=== PATIENT | female | born 1935 | race African-American/Black ===

== ENCOUNTER 2017-09-04 23:17 | Inpatient (IN) | payer MEDICARE, MEDICAID, OTHER ==
[~2017-09-04] VITALS: Ht 152.4 cm; Wt 68.5 kg
[~2017-09-04 23:17] MED LIST: ALPR0.25 PO; FELO5TAB PO; LOSA50TA3 PO; TRAMADOL
[2017-09-04] MEDS ORDERED: SODIUM CHLORIDE 0.9% 1,000 ML IV ONE (23:25)
[2017-09-04 23:48] LABS: HEMATOCRIT. 25.3 % (36.0-48.0); HEMOGLOBIN. 8.6 g/dL (12.0-16.0); MEAN CORPUSCULAR VOLUME 96.7 fL (81.0-99.0); MEAN PLATELET VOLUME 7.7 fl (7.4-10.4); PLATELET 259 x1000/uL (130-400); RED BLOOD CELL COUNT 2.62 mill/uL (4.2-5.4); RED CELL DISTRIBUTION WIDTH 13.6 % (11.6-14.6)
[2017-09-04 23:52] LABS: CHLORIDE 103 mEq/L (98-107)
[2017-09-04 23:53] LABS: PROTHROMBIN TIME 10.7 sec (9.4-11.6)
[2017-09-04 23:59] LABS: ETHANOL BLOOD < 10 mg/dL
[2017-09-05] VITALS (8 sets, daily range): BP systolic 93–155; BP diastolic 40–70
[2017-09-05 00:33] LABS: PLATELET ESTIMATE NORMAL
[2017-09-05 01:02] LABS: CLARITY URINE CLEAR (CLEAR); COLOR URINE YELLOW (YELLOW); KETONES URINE TRACE (NEGATIVE); LEUKOCYTE ESTERASE URINE NEGATIVE (NEGATIVE); NITRITE URINE NEGATIVE (NEGATIVE); OCCULT BLOOD URINE NEGATIVE (NEGATIVE); PH URINE 6.5 (4.5-8.0); PROTEIN URINE NEGATIVE (NEGATIVE); SPECIFIC GRAVITY URINE 1.021 (1.005-1.030); UROBILINOGEN URINE 0.2 E.U./dL (0.2-1.0)
[2017-09-05 01:16] LABS: *AMPHETAMINES SCREEN URINE NEGATIVE (NEGATIVE); *BARBITURATES SCREEN URINE NEGATIVE (NEGATIVE); *BENZODIAZEPINES SCREEN URINE NEGATIVE (NEGATIVE)
[2017-09-05 01:17] LABS: *COCAINE SCREEN URINE NEGATIVE (NEGATIVE); METHADONE URINE SCREEN NEGATIVE (NEGATIVE); OPIATES URINE SCREEN NEGATIVE (NEGATIVE)
[2017-09-05 01:18] LABS: CANNABINOID URINE SCREEN NEGATIVE (NEGATIVE); PHENCYCLIDINE URINE SCREEN NEGATIVE (NEGATIVE)
[2017-09-05] MEDS ORDERED: SODIUM CHLORIDE 0.9% 1,000 ML IV ONE (02:42)
[2017-09-05] MEDS ORDERED: PANTOPRAZOLE 40MG DR TABLET PO SCH (07:45)
[2017-09-05] MEDS ORDERED: HYDROCODONE/ACETAMINOPHEN 5/325MG TABLET PO PRN (07:45)
[2017-09-05] MEDS ORDERED: SODIUM CHLORIDE 0.9% 100 ML IV ONE (07:45)
[2017-09-05] MEDS ORDERED: PIPERACILLIN/TAZ 3.375G PREMIX 50 ML IV SCH (07:45)
[2017-09-05] MEDS: SODIUM CHLORIDE 0.9% 1,000 ML IV SCH (08:04)
[2017-09-05] MEDS ORDERED: ASPIRIN 81MG TABLET PO SCH (09:00)
[2017-09-05] MEDS ORDERED: ENOXAPARIN 30MG/0.3ML SYR SUBCUT SCH (09:00)
[2017-09-05] MEDS: PIPERACILLIN/TAZOBACTAM 2.25 G in DEXTROSE 5% WATER 50 ML IV SCH ×3 (09:31→21:15)
[2017-09-05] MEDS ORDERED: ONDANSETRON HCL 4MG/2ML VIAL IV PRN (14:30)
[2017-09-05 16:44] LABS: CHLORIDE 112 mEq/L (98-107)
[2017-09-05 16:53] LABS: CREATINE KINASE 212 IU/L (26-192)
[2017-09-05 16:55] LABS: CREATINE KINASE MB FRACTION 3.5 ng/mL (0.5-3.6)
[2017-09-05 17:56] LABS: MEAN CORPUSCULAR HEMOGLOBIN 32.1 pg (28.0-32.0); MEAN CORPUSCULAR VOLUME 97.5 fL (81.0-99.0); MEAN PLATELET VOLUME 7.5 fl (7.4-10.4); PLATELET 176 x1000/uL (130-400); RED BLOOD CELL COUNT 1.33 mill/uL (4.2-5.4); RED CELL DISTRIBUTION WIDTH 14.1 % (11.6-14.6)
[2017-09-05 18:03] LABS: HEMOGLOBIN. 4.3 g/dL (12.0-16.0)
[2017-09-05 20:21] LABS: NUCLEATED RED BLOOD CELLS 2 /100 WBC; PLATELET ESTIMATE NORMAL
[2017-09-06] VITALS (13 sets, daily range): BP systolic 94–128; BP diastolic 38–89
[2017-09-06] MEDS: PIPERACILLIN/TAZOBACTAM 2.25 G in DEXTROSE 5% WATER 50 ML IV SCH ×3 (04:57→21:17)
[2017-09-06] MEDS: SODIUM CHLORIDE 0.9% 1,000 ML IV SCH (04:58)
[2017-09-06] MEDS ORDERED: PANTOPRAZOLE SODIUM 40 MG/VIAL IV SCH (09:00)
[2017-09-06 10:19] LABS: HEMATOCRIT. 25.1 % (36.0-48.0); HEMOGLOBIN. 8.6 g/dL (12.0-16.0); MEAN CORPUSCULAR HEMOGLOBIN 31.4 pg (28.0-32.0); MEAN CORPUSCULAR VOLUME 91.9 fL (81.0-99.0); PLATELET 171 x1000/uL (130-400); RED BLOOD CELL COUNT 2.73 mill/uL (4.2-5.4); RED CELL DISTRIBUTION WIDTH 15.8 % (11.6-14.6)
[2017-09-06] MEDS: ACETAMINOPHEN 325MG TABLET PO PRN (13:09)
[2017-09-06 13:23] LABS: NUCLEATED RED BLOOD CELLS 8 /100 WBC; PLATELET ESTIMATE NORMAL
[2017-09-06] MEDS ORDERED: IOHEXOL-300 100 ML BOTTLE ONE (17:21)
[2017-09-06 20:19] LABS: TOTAL IRON BINDING CAPACITY 213 ug/dL (250-450)
[2017-09-06 20:32] LABS: FOLIC ACID (FOLATE) SERUM 15.5 ng/mL (>5.38)
[2017-09-06] MEDS: PANTOPRAZOLE SODIUM 40 MG/VIAL IV SCH (21:17)
[2017-09-07] VITALS (9 sets, daily range): BP systolic 110–155; BP diastolic 39–67
[2017-09-07] MEDS: ACETAMINOPHEN 325MG TABLET PO PRN (02:21)
[2017-09-07] MEDS: PIPERACILLIN/TAZOBACTAM 2.25 G in DEXTROSE 5% WATER 50 ML IV SCH ×4 (02:31→20:56)
[2017-09-07] MEDS: SODIUM CHLORIDE 0.9% 1,000 ML IV SCH (02:31)
[2017-09-07] MEDS: PANTOPRAZOLE SODIUM 40 MG/VIAL IV SCH ×2 (08:45→20:56)
[2017-09-07] MEDS ORDERED: SODIUM CHLORIDE 0.9% 10ML VIAL ONE (13:03)
[2017-09-07 13:19] LABS: HEMATOCRIT 21.3 % (36.0-48.0); HEMOGLOBIN 7.3 g/dL (12.0-16.0); MEAN CORPUSCULAR HEMOGLOBIN 31.8 pg (28.0-32.0); MEAN CORPUSCULAR VOLUME 93.4 fL (81.0-99.0); PLATELET 189 x1000/uL (130-400); RED BLOOD CELL COUNT 2.28 mill/uL (4.2-5.4)
[2017-09-07] MEDS ORDERED: MIDAZOLAM HCL 5 MG/5 ML VIAL IV PRN (16:19)
[2017-09-07] MEDS ORDERED: FENTANYL CITRATE/PF 50MCG/ML 2ML VIAL IV PRN (16:20)
[2017-09-07] MEDS ORDERED: MIDAZOLAM HCL 5 MG/5 ML VIAL ONE (16:21)
[2017-09-07] MEDS ORDERED: FENTANYL CITRATE/PF 50MCG/ML 2ML VIAL ONE (16:21)
[2017-09-07] MEDS: SUCRALFATE 1G TABLET PO SCH (22:04)
[2017-09-08] VITALS: BP 122/54
[2017-09-08] MEDS: SODIUM CHLORIDE 0.9% 1,000 ML IV SCH ×3 (00:01→21:33)
[2017-09-08 00:24] LABS: HEMATOCRIT 21.8 % (36.0-48.0); HEMOGLOBIN 7.5 g/dL (12.0-16.0)
[2017-09-08] MEDS: SUCRALFATE 1G TABLET PO SCH ×7 (00:56→21:21)
[2017-09-08] MEDS: PIPERACILLIN/TAZOBACTAM 2.25 G in DEXTROSE 5% WATER 50 ML IV SCH ×4 (03:49→21:31)
[2017-09-08 04:31] VITALS: BP 117/48
[2017-09-08 06:40] LABS: HEMATOCRIT 25.3 % (36.0-48.0); HEMOGLOBIN 8.7 g/dL (12.0-16.0); MEAN CORPUSCULAR HEMOGLOBIN 31.6 pg (28.0-32.0); MEAN CORPUSCULAR VOLUME 92.3 fL (81.0-99.0); PLATELET 197 x1000/uL (130-400); RED BLOOD CELL COUNT 2.74 mill/uL (4.2-5.4); RED CELL DISTRIBUTION WIDTH 15.4 % (11.6-14.6)
[2017-09-08 08:30] VITALS: BP 135/58
[2017-09-08 08:34] LABS: CHLORIDE 113 mEq/L (98-107)
[2017-09-08 12:30] VITALS: BP 156/54
[2017-09-08 14:28] LABS: HEMOGLOBIN 8.4 g/dL (12.0-16.0)
[2017-09-08 16:22] VITALS: BP 135/66
[2017-09-08 20:00] VITALS: BP 144/60
[2017-09-08] MEDS: ACETAMINOPHEN 325MG TABLET PO PRN (21:22)
[2017-09-08] MEDS: LORAZEPAM 0.5MG TABLET PO PRN (21:22)
[2017-09-09] VITALS: BP 148/52
[2017-09-09] MEDS: PIPERACILLIN/TAZOBACTAM 2.25 G in DEXTROSE 5% WATER 50 ML IV SCH ×3 (03:00→15:23)
[2017-09-09 04:00] VITALS: BP 132/65
[2017-09-09] MEDS: SUCRALFATE 1G TABLET PO SCH ×5 (05:34→20:58)
[2017-09-09] MEDS: ACETAMINOPHEN 325MG TABLET PO PRN ×3 (05:36→18:02)
[2017-09-09 07:12] LABS: HEMATOCRIT 25.8 % (36.0-48.0); HEMOGLOBIN 8.6 g/dL (12.0-16.0); MEAN CORPUSCULAR HEMOGLOBIN 31.2 pg (28.0-32.0); MEAN CORPUSCULAR VOLUME 93.5 fL (81.0-99.0); PLATELET 223 x1000/uL (130-400); RED BLOOD CELL COUNT 2.76 mill/uL (4.2-5.4); RED CELL DISTRIBUTION WIDTH 15.7 % (11.6-14.6)
[2017-09-09] MEDS ORDERED: OMEPRAZOLE 20MG CAPSULE EXTENDED RELEASE PO SCH (07:20)
[2017-09-09 07:23] LABS: CHLORIDE 111 mEq/L (98-107)
[2017-09-09 07:42] VITALS: BP 166/62
[2017-09-09] MEDS: LORAZEPAM 0.5MG TABLET PO PRN (10:54)
[2017-09-09] MEDS ORDERED: CLONIDINE 0.1MG TABLET PO PRN (11:45)
[2017-09-09 11:48] VITALS: BP 147/59
[2017-09-09 16:05] VITALS: BP 183/64
[2017-09-09 20:00] VITALS: BP 145/65
== END 2017-09-09 21:47 | DRG 871 ==
LOC: ER 23:17 → 6WST 09-05 01:28 → EDBEDREQ 09-05 01:29 → EDBEDREQTM 09-05 01:29 → EDBEDREQDT 09-05 01:29 → ENRESERV 09-05 02:50
PROVIDERS: ADMIT Internal Medicine; ATTEND Internal Medicine
PROC: 30233N1 Transfusion of Nonautologous Red Blood Cells into Peripheral Vein, Percutaneous Approach (ICD-10-PCS; 2017-09-05)
PROC: 0DB68ZX Excision of Stomach, Via Natural or Artificial Opening Endoscopic, Diagnostic (ICD-10-PCS; principal; 2017-09-07 17:30)
DX: A41.9 Sepsis, unspecified organism (principal); G93.40 Encephalopathy, unspecified; I50.33 Acute on chronic diastolic (congestive) heart failure; E86.0 Dehydration; D62 Acute posthemorrhagic anemia; K25.9 Gastric ulcer, unspecified as acute or chronic, without hemorrhage or perforation; F03.90 Unspecified dementia, unspecified severity, without behavioral disturbance, psychotic disturbance, mood disturbance, and anxiety; F41.0 Panic disorder [episodic paroxysmal anxiety]; F41.1 Generalized anxiety disorder; M19.90 Unspecified osteoarthritis, unspecified site; R79.89 Other specified abnormal findings of blood chemistry; K44.9 Diaphragmatic hernia without obstruction or gangrene; Z60.2 Problems related to living alone; K21.9 Gastro-esophageal reflux disease without esophagitis; K29.70 Gastritis, unspecified, without bleeding; I11.0 Hypertensive heart disease with heart failure; Z87.11 Personal history of peptic ulcer disease; Z98.49 Cataract extraction status, unspecified eye; Z88.6 Allergy status to analgesic agent; Z79.899 Other long term (current) drug therapy; Z86.73 Personal history of transient ischemic attack (TIA), and cerebral infarction without residual deficits
CPT/HCPCS: 36415; 36430; 70450; 71045; 74177; 76700; 80048; 80053; 80305; 81003; 82247; 82248; 82270; 82550; 82553; 82607; 82728; 82746; 82962; 83010; 83540; 83550; 83605; 83615; 83690; 83880; 84443; 84484; 85007; 85014; 85018; 85025; 85027; 85044; 85379; 85610; 86850; 86870; 86900; 86920; 87040; 88305; 88312; 88313; 93005; 93306; 96360; 96361; 97162; 99285; A4216; C1893; C9113; G0482; J1650; J2250; J2405; J2543; J3010; J7030; J7050; J7060; P9016; Q9967